=== PATIENT | female | born 1995 | race Caucasian/White ===

== ENCOUNTER 2022-04-05 21:14 | Emergency (ER) | payer OTHER ==
[~2022-04-05] VITALS: Ht 162.6 cm; Wt 54.4 kg
[2022-04-05 21:30] VITALS: BP 121/65
--- NOTE | 2022-04-05 21:30 | NUR ---
PT AMBULATED TO BED BED #6
--- NOTE | 2022-04-05 22:05 | NUR ---
Patient being evaluated by physician at bedside.
[2022-04-05] MEDS ORDERED: PRED50TA3 PO (22:26)
[2022-04-05] MEDS ORDERED: DIPH25TA53 PO (22:26)
[2022-04-05 22:32] VITALS: BP 121/65
--- NOTE | 2022-04-05 22:32 | NUR ---
Patient discharged with v/s stable. Written and verbal after care instructions given and explained. Patient verbalized understanding. Ambulatory with steady gait. All questions addressed prior to discharge. Advised to follow up with PMD.
--- NOTE | 2022-04-05 22:36 | NUR ---
27YR OLD FEMALE BIB SELF C/O RASH/ALLERGY RX. WAS AT CLINIC AND GIVEN ABX PT STATES RASH IS GETTING WORSE. DENIES SOB OR CP . DENIES FEVER V/D. RESP EVEN AND UNLABORED. RASH TO NECK TRUNK AREA , BACK. PALMS AND FEET ARE ITCHY NO RASH SEEN. DENIES PAIN , PT STATES UNCOMFORTABLE. SKIN WARM DRY AND INTACT. HOB ELEVED. PT IS A&OX4. BED AT LOWEST POSITION ON BEDSIDE YARN HAULER NKDA NO HX
--- NOTE | 2022-04-05 22:52 | NUR ---
The patient's care was reviewed and supervised by Meggan Beltran RN.
== END 2022-04-05 22:32 | disposition home or self-care (01) ==
LOC: MED 21:14
DX: L29.9 Pruritus, unspecified (principal); R21 Rash and other nonspecific skin eruption; F12.90 Cannabis use, unspecified, uncomplicated
CPT/HCPCS: 81002; 81025; 99282